=== PATIENT | male | born 1955 | race Caucasian/White ===

== ENCOUNTER 2020-12-09 20:06 | Inpatient (IN) | payer SELFPAY ==
[~2020-12-09] VITALS: Ht 172.7 cm; Wt 69.9 kg
--- NOTE | 2020-12-09 20:06 | NUR ---
INITIAL PT CONACT. PT WAS A TRANSFER FROM [place], C/O LEFT SIDED DEFICITS AND STROKE LIKE SYMPTOMS THAT BEGAN APPROX 28 HOURS AGO. CVA DX IN [place]. PT C/O MILD DIZZINESS. HX OF ETOH ABUSE, WHEN SYMPTOMS BEGAN YESTERDAY WHILE AT WORK, "I CAME HOME AND DRANK A LOT AND IT DIDN'T GET BETTER SO I DECIDED I NEEDED TO BE SEEN". PT HAS SIGNIFICANT WEAKNESS OF THE LEFT SIDE, LUE, MILD LLE WEAKNESS. PT SITTING UPRIGHT ON [employer]. PT PLACED ON CONTINUOS MONITORING, EDUCATED ON STAYING IN BED AND USE OF CALL LIGHT. WILL CONTINUE TO CLOSELY MONITOR
[2020-12-09 20:59] LABS: BASOPHILS % (AUTO) 1 % (0-1); EOSINOPHILS % (AUTO) 2 % (1-7); LYMPHOCYTES % (AUTO) 17 % (22-44); MEAN CORPUSCULAR HEMOGLOBIN 34.2 pg (27.5-34.5); MEAN CORPUSCULAR HGB CONC 33.9 g/dL (33.2-36.2); MEAN PLATELET VOLUME 8.9 fL (7.4-10.4); MONOCYTES % (AUTO) 9 % (2-9); NEUTROPHILS % (AUTO) 71 % (42-75); PLATELET COUNT 217 x10^3/uL (130-400); RED BLOOD COUNT 4.38 x10^6/uL (4.38-5.82); RED CELL DISTRIBUTION WIDTH 13.8 % (9.4-14.8)
[2020-12-09 21:01] LABS: MD NO
[2020-12-09 21:10] LABS: ANION GAP 7 mmol/L (5-15); CALCIUM 9.1 mg/dL (8.5-10.1); CHLORIDE 106 mmol/L (98-107); CREATININE 1.71 mg/dL (0.7-1.3)
[2020-12-09 21:11] LABS: INTERNATIONAL NORMALIZED RATIO 1.08 (0.93-1.1); PROTHROMBIN TIME 11.5 Seconds (9.6-11.5)
--- NOTE | 2020-12-09 21:49 | NUR ---
HOSPITALIST AT BEDSIDE
--- NOTE | 2020-12-09 21:55 | NUR ---
PT INCREASINGLY AGITATED AND PULLING AT MONITORING. ERP AND HOSPITALIST AWARE. WILL MEDICATE PER EMAR
[2020-12-09] MEDS ORDERED: LORazepam 2 MG/ML, 1ML ONE (22:12)
[2020-12-09] MEDS: LORazepam 2 MG/ML, 1ML IV PRN (22:15)
[2020-12-09] MEDS ORDERED: THIAMINE 200 MG in DEXTROSE 5% 50 ML IVPB ONE (22:30)
[2020-12-09] MEDS ORDERED: BISACODYL 10 MG SUPP PR PRN (22:30)
[2020-12-09] MEDS ORDERED: LABETALOL 5MG/ML, 20ML IVPush PRN (22:30)
[2020-12-09] MEDS ORDERED: LORazepam 2 MG/ML, 1ML IV PRN ×4 (22:30)
--- NOTE | 2020-12-09 22:32 | NUR ---
Pt to be admitted to TELE2, room 406. Report called to
[2020-12-09 23:00] VITALS: BP 175/104
[2020-12-09] MEDS: NICOTINE 14MG/24 HR PATCH.TD24 TD SCH (23:39)
[2020-12-09] MEDS: ATORVASTATIN 80 MG TABLET PO SCH (23:45)
[2020-12-10 00:23] VITALS: BP 155/78
[2020-12-10 02:50] VITALS: BP 162/78
[2020-12-10 05:30] VITALS: BP 166/104
[2020-12-10 06:01] LABS: CHOL/HDL RATIO 4.8; LDL/HDL RATIO 2.7 (0.5-3.0)
[2020-12-10 07:04] VITALS: BP 135/82
[2020-12-10] MEDS: THIAMINE 100MG TABLET PO SCH (08:53)
[2020-12-10] MEDS: ASPIRIN 81 MG TABLET CHEW PO/NG SCH (08:53)
[2020-12-10] MEDS: MULTIVITAMINS/MINERALS TABLET PO SCH (08:53)
[2020-12-10 12:21] VITALS: BP 160/76
[2020-12-10] MEDS: LORazepam 2 MG/ML, 1ML IV PRN (14:07)
[2020-12-10] MEDS: NICOTINE 14MG/24 HR PATCH.TD24 TD SCH (16:43)
[2020-12-10] MEDS: ATORVASTATIN 80 MG TABLET PO SCH (21:13)
[2020-12-10 21:30] VITALS: BP 170/90
[2020-12-11 00:28] VITALS: BP 153/71
[2020-12-11] MEDS: MULTIVITAMINS/MINERALS TABLET PO SCH (08:03)
[2020-12-11] MEDS: ASPIRIN 81 MG TABLET CHEW PO/NG SCH (08:03)
[2020-12-11] MEDS: THIAMINE 100MG TABLET PO SCH (08:03)
[2020-12-11 08:47] VITALS: BP 134/77
[2020-12-11 11:42] VITALS: BP 163/92
[2020-12-11] MEDS: NICOTINE 21 MG/24 HR PATCH.TD24 TD SCH (12:06)
[2020-12-11 18:19] VITALS: BP 127/79
[2020-12-11] MEDS: ATORVASTATIN 80 MG TABLET PO SCH (21:20)
[2020-12-12 01:43] VITALS: BP 121/73
[2020-12-12 05:24] LABS: ANION GAP 3 mmol/L (5-15); CALCIUM 9.1 mg/dL (8.5-10.1); CHLORIDE 110 mmol/L (98-107); CREATININE 1.33 mg/dL (0.7-1.3)
[2020-12-12 06:23] VITALS: BP 126/72
[2020-12-12] MEDS: MULTIVITAMINS/MINERALS TABLET PO SCH (09:00)
[2020-12-12] MEDS: ASPIRIN 81 MG TABLET CHEW PO/NG SCH (09:00)
[2020-12-12] MEDS: THIAMINE 100MG TABLET PO SCH (09:00)
[2020-12-12] MEDS: NICOTINE 21 MG/24 HR PATCH.TD24 TD SCH (09:00)
[2020-12-12 13:00] VITALS: BP 118/68
[2020-12-12] MEDS ORDERED: ASPI-963 PO/NG (15:23)
[2020-12-12] MEDS ORDERED: ATOR-2 PO (15:23)
== END 2020-12-12 20:00 | disposition home or self-care (01) | DRG 65 ==
LOC: ED 22:23 → EDIP 22:32 → 4WST 22:50
PROVIDERS: ADMIT Family Medicine; ATTEND Hospitalist
DX: I63.511 Cerebral infarction due to unspecified occlusion or stenosis of right middle cerebral artery (principal); F10.239 Alcohol dependence with withdrawal, unspecified; G81.90 Hemiplegia, unspecified affecting unspecified side; R47.01 Aphasia; Z66 Do not resuscitate; R29.713 NIHSS score 13; I10 Essential (primary) hypertension; F17.210 Nicotine dependence, cigarettes, uncomplicated; R29.810 Facial weakness; Z90.49 Acquired absence of other specified parts of digestive tract
CPT/HCPCS: 36415; 70551; 80048; 80061; 85025; 85610; 85730; 93005; 93306; 96374; 96375; G0378; J3411; 92523-GN; J2060